=== PATIENT | male | born 1955 | race Caucasian/White ===

== ENCOUNTER 2017-06-07 14:35 | Emergency (ER) | payer SELFPAY ==
[~2017-06-07] VITALS: Ht 182.9 cm; Wt 94.3 kg
[~2017-06-07 14:35] MED LIST: AZITHROMYCIN250 MG1 PO; MOTRIN800 MG PO; PROAIR RESPICL90 MCG IH
[2017-06-07 16:19] LABS: APPEARANCE CLOUDY ((CLEAR)); BILIRUBIN NEGATIVE; BLOOD LARGE; COLOR AMBER ((YELLOW)); GLUCOSE (STRIP) NEGATIVE; KETONES NEGATIVE; LEUKOCYTES LARGE; NITRITE POSITIVE; PROTEIN (STRIP) 100; SPECIFIC GRAVITY 1.018 (1.000-1.030)
[2017-06-07 17:29] LABS: BACTERIA 2+ /HPF; EPITHELIAL CELLS NONE SEEN /HPF; MUCUS NONE SEEN /LPF; UCUL ADDED? YES; WHITE BLOOD CELLS TNTC /HPF (0-5)
[2017-06-07 17:58] LABS: HEMATOCRIT 43.6 % (38.0-50.0); HEMOGLOBIN 14.8 G/DL (12.5-16.6); MCH 28.7 PG (29.0-34.0); MCHC 33.9 G/DL (30.0-36.0); MCV 84.7 FL (86-99); PLATELET COUNT 252 K/uL (156-360); RBC DIS.WIDTH-CV 12.4 % (11.8-14.6); RBC DIS.WIDTH-SD 37.9 % (39-53); RED BLOOD COUNT 5.15 M/uL (4.00-5.50); WHITE BLOOD COUNT 5.1 K/uL (4.1-10.2)
[2017-06-07 18:11] LABS: CHLORIDE 106 mEq/L (99-109); POTASSIUM 4.5 mEq/L (3.7-5.4); SODIUM 139 mEq/L (136-147)
[2017-06-07 18:13] LABS: GLUCOSE 93 mg/dL (70-99)
[2017-06-07 18:17] LABS: CREATININE 1.1 mg/dL (0.6-1.3); GFR ESTIMATE (CALCULATED) > 59 mL/min/ (58.99-99999); UREA NITROGEN (BUN) 20 mg/dL (9-23)
[2017-06-07] MEDS ORDERED: VIBRAMYCIN100 MG PO (18:48)
[2017-06-07] MEDS ORDERED: FLOMAX0.4 MG PO (18:48)
[2017-06-07 19:18] VITALS: BP 126/79
== END 2017-06-07 19:19 | disposition home or self-care (01) ==
LOC: EME 14:35
PROVIDERS: Nurse Practitioner Family
DX: N39.0 Urinary tract infection, site not specified (principal); R31.9 Hematuria, unspecified; N40.0 Benign prostatic hyperplasia without lower urinary tract symptoms; Z87.442 Personal history of urinary calculi
CPT/HCPCS: 80048; 81003; 85027; 87086; 99281; 99285

== ENCOUNTER → 2017-07-09 | Outpatient (CLI) | payer SELFPAY ==
[~2017-07-09] MED LIST changes: +FLOMAX0.4 MG PO; +VIBRAMYCIN100 MG PO
== END | disposition home or self-care (01) ==
LOC: RAD 09:09
DX: K44.9 Diaphragmatic hernia without obstruction or gangrene (principal); R59.0 Localized enlarged lymph nodes; R93.5 Abnormal findings on diagnostic imaging of other abdominal regions, including retroperitoneum
CPT/HCPCS: 74178